=== PATIENT | female | born 2000 | race Caucasian/White ===

== ENCOUNTER 2025-04-01 10:58 | Outpatient (REF) | payer OTHER, SELFPAY ==
--- NOTE | ~2025-04-01 | XR_ITS ---
EXAMINATION: XR KNEE 3 VIEWS BILATERAL HISTORY: bilateral knee pain COMPARISON: There are no prior studies available for comparison. FINDINGS: Six views of the bilateral knees are submitted. Osseous mineralization is normal. There is no fracture or dislocation. The joint spaces are preserved. The soft tissues are unremarkable. There is no joint effusion. XR/XR Knee Ant 3V IMPRESSION: Unremarkable examination of the bilateral knees. Electronically signed by: Anil Jiménez MD 04/01/2025 11:40 AM EDT
--- OUTSIDE RECORDS SUMMARY | 2025-04-02 12:53 | XMS_ITS | Encounter Summary ---
Author Organization [facility] Address [address] [place] [address] Care Team Providers Care Measurement Analyst Name Role Phone Jennie Lim COPPER ETCHER Primary Care Provider Encounter Details Date Type Department Care Team (Late st Contact Info) Description 03/31/2025 - 04/01/2025 3:49 AM EDT Emergency [facility] Emergency [address] [place] [address] Discharge Disposition: ED Dismiss - [...] on filedocumented in this encounter Care Teams Measurement Analyst Relationship Specialty Start Date End Date Jennie Lim COPPER ETCHER [address] [place] [address] 3 [facility] [phone] PCP - General Nurse Practitioner 08/22/24 documented as of this encounter
--- OUTSIDE RECORDS SUMMARY | 2025-04-02 12:53 | XMS_ITS | Clinical Summary ---
Author Organization [facility] Address [address] [place] [address] Phone Care Team Providers Care Research Center Director Name Role Phone Jennie Lim NP Primary Care Provider Allergies No known active allergies Medications cimetidine (TAGAMET) 200 mg tablet Take 1 tablet (200 mg total) by mouth 4 (four) times a day. Active Encounters Date Type Department Care Team Description 03/31/2025 - 04/01/2025 3:49 AM EDT Emergency [facility] Emergency [address] [place] [address] Discharge Disposition: ED Dismiss - [...] complete this topic RSV Immunization Patients Un avelino 20 months Aged Out No longer eligible b ased on patient's age to complete this topic Varicella Vaccines Aged Out No longer eligible based on patient's age to complete this topic Insurance [facility] MEDICAID ADVANTAGE Care Teams Research Center Director Relationship Specialty Start Date End Date Jennie Lim NP [address] [place] [address] [place] [address] PCP - General Nurse Practitioner 08/22/24
== END 2025-04-01 10:59 | disposition home or self-care (01) ==
LOC: HO.HOSX 10:58
PROVIDERS: Visit Provider Orthopaedic Surgery
DX: M25.561 Pain in right knee (principal); M25.562 Pain in left knee; M79.605 Pain in left leg; M54.50 Low back pain, unspecified
CPT/HCPCS: 73562; 99202

== ENCOUNTER 2025-04-01 11:12 | Outpatient (AMB) | payer OTHER, SELFPAY ==
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
--- OUTSIDE RECORDS SUMMARY | 2025-04-01 12:48 | XMS_ITS | Clinical Summary ---
Author Organization [facility] Address [address] [place] [address] Phone Care Team Providers Care Engine Cleaner Name Role Phone Jennie Lim NP Primary Care Provider Allergies No known active allergies Medications cimetidine (TAGAMET) 200 mg tablet Take 1 tablet (200 mg total) by mouth 4 (four) times a day. Active Encounters Date Type Department Care Team Description 03/31/2025 - 04/01/2025 3:49 AM EDT Emergency [facility] Emergency [address] [place] [address] Discharge Disposition: ED Dismiss - Never Arrived from Last 3 Months Surgical History Surgery Date Site/Laterality Comments CARPAL TUNNEL RELEASE Right 2023 HEMORRHOID SURGERY Medical History Medical History Date Comments GERD (gastroesophageal reflux disease) Strep throat Social History Tobacco Use Types Packs/Day Years Used Date Smoking Tobacco: Never Smokeless Tobacco: Never Tobacco Cessation:Counseling Given: Not Answered Alcohol Use Standard Drinks/Week Comments Not Currently 0 (1 standard drink = 0.6 oz pur e alcohol) Interpersonal Safety Answer Date Record ed Physical Abuse Unrecognized value 08/25/2024 Verbal Abuse Unrecognized value 08/25/2024 Comments No Sex and Gender Information Value Date Recorded Sex Assigned at Female 08/22/2024 2:50 PM EST Legal Sex Female 1:02 PM EST Gender Identity Female 08/25/2024 9:22 AM EST Sexual Orientation Straight 08/25/2024 9: 22 AM EST Obstetrics History Last Filed Vital Signs Vital Sign Reading Time Taken Comments Blood Pressure 116/78 08/25/2024 1:03 PM EST Pulse 56 08/25/2024 1:03 PM EST Temperature 36.1 C (97 F) 08/25/2024 1:03 PM EST Respiratory Rate 18 08/25/2024 1:03 PM EST Oxygen Saturation 99% 08/25/2024 1:03 PM EST Inhaled Oxygen Concentration - - Weight 79.8 kg (176 lb) 08/25/2024 9:45 AM EST Height 165.1 cm (5' 5 ) 08/11/2024 11:00 AM EST Body Mass Index 29.29 08/11/2024 11:00 AM EST Plan of Treatment Health Maintenance Due Date Last Done Comments HPV Vaccines (1 - 3-dose series) 2014 DTaP,Tdap,and Td Vaccines (1 - Tdap) 2018 Hepatitis B Vaccines (1 of 3 - 19+ 3-dose series) 2018 Cervical Cancer Screening: P ap Smear 2020 Depression Screening 07/02/2024 HIV Screening 08/08/2024 Hepatitis C Screening 08/08/2024 Social Influencers of Health Screening 08/08/2024 COVID-19 Vaccine (1 - 2023-2 5 season) 2025 Influenza Vaccine (#1) 2025 RSV Immunization Adult Patie nts (1 - 1-dose 75+ series) 2074 HIB Vaccines Aged Out No longer eligi ble based on patient's age to complete this topic Hepatitis A Vaccines Aged Out No long er eligible based on patient's age to complete this topic IPV Vaccines Aged Out No longer eligi ble based on patient's age to complete this topic MMR Vaccines Aged Out No longer eligi ble based on patient's age to complete this topic Meningococcal ACWY Vaccine Aged Out N o longer eligible based on patient's age to complete this topic Meningococcal B Vaccine Aged Out No l onger eligible based on patient's age to complete this topic Pneumococcal Vaccine: Pediat rics (0 to 5 Years) and At-Risk Patients (6 to 49 Years) Aged Out No longer eligible b ased on patient's age to complete this topic RSV Immunization Patients Un avleino 20 months Aged Out No longer eligible b ased on patient's age to complete this topic Varicella Vaccines Aged Out No longer eligible based on patient's age to complete this topic Insurance [facility] MEDICAID ADVANTAGE Care Teams Engine Cleaner Relationship Specialty Start Date End Date Jennie Lim NP [address] [place] [address] [place] [address] PCP - General Nurse Practitioner 08/22/24
--- OUTSIDE RECORDS SUMMARY | 2025-04-01 12:48 | XMS_ITS | Encounter Summary ---
Author Organization [facility] Address [address] [place] [address] Care Team Providers Care Radio Frequency Engineer Name Role Phone Jennie Lim SQUARING SHEAR OPERATOR Primary Care Provider Encounter Details Date Type Department Care Team (Late st Contact Info) Description 03/31/2025 - 04/01/2025 3:49 AM EDT Emergency [facility] Emergency [address] [place] [address] Discharge Disposition: ED Dismiss - Never Arrived Social History Tobacco Use Types Packs/Day Years Used Date Smoking Tobacco: Never Smokeless Tobacco: Never Alcohol Use Standard Drinks/Week Comments Not Currently [...] Orientation Straight 08/25/2024 9: 22 AM EST documented as of this encounter Medications at Time of Discharge cimetidine (TAGAMET) 200 mg tablet Take 1 tablet (200 mg total) by mouth 4 (four) times a day. documented as of this encounter Discharge Disposition Disposition Code Departure Means Destination ED Dismiss - Never Arrived documented in this encounter Plan of Treatment Not on file documented as of this encounter Visit Diagnoses Not on filedocumented in this encounter Care Teams Radio Frequency Engineer Relationship Specialty Start Date End Date Jennie Lim SQUARING SHEAR OPERATOR [address] [place] [address] [address] [facility] [place] [phone] PCP - General Nurse Practitioner 08/22/24 documented as of this encounter
== END 2025-04-01 11:45 | disposition home or self-care (01) ==
PROVIDERS: PCP Nurse Practitioner Family; Visit Provider Orthopaedic Surgery
DX: M25.561 Pain in right knee (principal); M25.562 Pain in left knee; M54.50 Low back pain, unspecified; M79.605 Pain in left leg
CPT/HCPCS: 99203; G2211

== ENCOUNTER → 2025-04-01 11:16 | Outpatient (BNV) | payer OTHER, SELFPAY | PROVIDERS: Visit Provider Radiology Diagnostic Radiology | DX: M25.561 Pain in right knee (principal); M25.562 Pain in left knee | CPT/HCPCS: 73562 ==

== ENCOUNTER 2025-05-21 15:22 | Outpatient (AMB) | payer OTHER, SELFPAY ==
--- NOTE | 2025-05-21 15:29 | MHC.OFFVIS ---
Vital Signs 05/21/25 15:31 Height 5 ft 5 in Weight 180 lb BMI 30.0 Intake Visit Reasons: bilateral knee pain Intake Note: Nita presents today with her son for her follow up visit for her lower back pain and bilateral knee pain. States she feeling better, she has been doing some knee exercise at home and feels like she is ready to return to work. She works at [employer]. She denies any numbness or tingling in either of her lower extremities. She denies any locking or giving way in either of her knees. The patient states that she canceled her low back MRI because her symptoms resolved. Allergies No Known Allergies Allergy (Verified 05/21/25 15:31) Medication List - Last Reconciled 05/22/25 by Joe Faith MD albuterol sulfate 90 mcg/actuation (Ventolin HFA) 2 puffs inhalation QID etonogestrel-ethinyl estradiol 0.12-0.015 mg/24 hr (Haloette) 1 vag ring vaginal Q4W hydroxyzine HCl 50 mg PO BEDTIME PRN ibuprofen 800 mg PO Q8H methylphenidate HCl ER (Concerta) 18 mg PO DAILY PFSH Social History Current occupational status: employed Current occupation: [email or web address] Physical Exam Vital Signs: BMI result Body Mass Index 30.0 Extrem Other: Bilateral knee examination shows no effusions, no crepitus with range of motion, no joint line tenderness, no instability, no discomfort with range of motion Assessment & Plan Assessment & Plan (1) Bilateral knee pain: Code(s): M25.561 - Pain in right knee; M25.562 - Pain in left knee Category: Medical Plan Ms. Walker presents for follow up of her low back pain and bilateral knee pains. At this point the patient is asymptomatic. She can continue full activities as tolerated. She is cleared to return to full duty at work. She will follow up with me on an as-needed basis should any questions or concerns arise. I spent 21 minutes in reviewing the patient's records and imaging studies, seeing the patient and documenting in the medical record. Coding Level of Care Code Est Pt Level 3 (78927) Diagnoses Bilateral knee pain M25.561; M25.562
--- OUTSIDE RECORDS SUMMARY | 2025-05-21 20:35 | XMS_ITS | Data Portability ---
Author Organization [place] [facility] Address [address] [place] [address] Care Team Providers Care Eyeglass Maker Name Role Phone ELBA LEDBETTER Primary Care Provider Assessment Encounter Date Assessment Date Assessment LastModified by Organization Details LastModified Time 06/17/2024 06/17/2024 23-year-old female presents today for tonsil stones, recurrent strep. While she reports that she has been on antibiotics 3-5 times for strep, I only see 3 strep swabs in the past year and only one of them was weakly positive for strep. This does not take into account visits to her PCP. She does have a picture which does show prominent stone. On exam today, tonsils are cryptic without any active stones. Her description of her symptoms is pretty significant. She has already been on salt water gargles and does avoid removing them. They usually come out on their own. Further medical management can include avoiding Listerine and regular use of reflux medication, though I doubt this will be curative for the stones. It would be reasonable to proceed with tonsillectomy. We discussed that this would not be she could still get strep infections but it should be curative for the stones. The patient is a candidate for tonsillectomy. Alternatives including continued observation discussed. Risk of general anesthesia, 2-3% risk of bleeding, the possible risk of damage to teeth and gums, the significant pain involved, voice changes, postoperative trouble swallowing were all discussed. The they will contact our office to schedule at a mutually convenient time. All questions were answered. [email or web address] Not available 06/17/2024 10:05:01 Plan of Treatment Reminders Order Date Submit Date Provider Last Modified By Organization Details Last Modified Time Details Appointments None recorded. Lab None recorded. Referral None recorded. Procedures None recorded. Surgeries tonsillect cristela (SURG) 2023 024 [email or web address] Not available 10:17:43 Imaging None recorded. Medication Orders None recorded. Patient TargetsNo targets recorded. Patient InstructionsNo instructions recorded. Reason for Referral None Reported. Results Created Date Observation Date Name Description Value Unit Range Abnormal Flag Note LastModifiedBy Organization Detail LastModifiedTime 08/25/1908/25/2024 TISSU E EXAM .note See Note Origi nal Order ing Provi avelino: BRIT N BUSEK HARPER [facility] - [address], Sita agarwal, [place] [id number] Not Available [address], [address], 08/26/2024 12:47:13 08/25/19 25 08/25/2024 TISSU E EXAM final diagnosis A. Tonsil , right, tonsil lectom y: - Tonsi l with promi nent folli cular lymph oid hyper plasi a, focal acute infla mmati on in the surfa ce epith elium and scatt ered aggre baez of bacte molly morph ologi romero sugge stive of Actin omyce s spp. B. Tonsi l, left, tonsi llect cristela: - Tonsi l with promi nent folli cular lymph oid hyper plasi a, focal ulcer ation assoc iated with acute infla mmati on and scatt ered aggre baez of bacte molly morph ologi romero sugge stive of Actin omyce s spp. Elect mai agarwal by Jesse Marroquin MD on 2024 at 12:44 PM Not Available [address], [address], 08/26/2024 12:47:13 08/25/19 25 08/25/2024 TISSU E EXAM gross description A. Tonsil , Right, : Label ed tonsi l R . Recei zahida in forma daniel is a focal ly disru pted, soft, hwang-p ink, lobul ar tonsi l measu ring 1.7 x 1.5 x 0.8 cm, with minim al attac hed blood clot. The mucos a is shiny and pink. The base is caute rized . The cut surfa kacy are soft and hwang-p ink, with a crypt ic archi tectu re. The crypt s conta in minim al soft, hwang-y ellow debri s A repre senta tive secti on is submi tted in one casse tte. B. Tonsi l, Left, : Label ed tonsi l L . Recei zahida in forma daniel is a focal ly disru pted, soft, hwang-p ink, lobul ar tonsi l measu ring 1.7 x 1.5 x 1.1 cm, with attac hed blood clot. The mucos a is shiny and pink. The base is caute rized . The cut surfa kacy are soft and hwang-p ink, with a crypt ic archi tectu re. The crypt s conta in soft, hwang-y ellow debri s. A repre senta tive secti on is submi tted in one casse tte. TS Not Available [address], [address], 08/26/2024 12:47:13 08/25/19 25 08/25/2024 TISSU E EXAM disclaimer Unles s other parish speci fied, all tissu e is 10% NB forma daniel fixed and paraf fin embed ded. Not Available [address], [address], 08/26/2024 12:47:13 08/25/19 25 08/25/2024 H&P No observ ation record ed. [address], [address], 08/26/2024 10:25:40 08/25/19 25 08/25/2024 op note No observ ation record ed. [address], [place], [address], 08/26/2024 10:25:41 Result Notes None recorded. Problems Name Problem SNOMED Code Status Onset Date Resolution Date Notes Provider Name and Address Organization Details Recorded Time Chronic tonsillitis 94490655 Active 024 CLEVELAND SMITH MD [address] [facility], [place], [address], [facility] 4 09:59:19 Problem Notes None recorded. Procedures Surgical History Date Name Laterality Status Provider Name and Address Organization Details Recorded Time Removal of tonsils completed CLEVELAND SMITH MD [address] [facility] [address], [place], [address], [facility] 08/25/2024 12:23:34 Imaging Results None recorded. Procedure Notes None recorded. Medical Equipment None Reported. Allergies Allergen ID Allergen Name Allergen Category Reaction Reaction Severity Criticality Documentation Date Start Date Code Code System Note Provider Name and Address Organization Details Recorded Time 004880 coconut extract food,medi cation Not available Not available Not available 06/17/2024 21525 48 RxNorm Jocy mcallister [facility] 4 09:30:25 Medications Name Sig Start Date Stop Date Status Note LastModified by Organization Details LastModified Time amoxicillin 500 mg capsule TAKE 1 CAPSULE BY MOUTH TWICE DAILY FOR 10 DAYS 06/17 completed Not Available Not Available Not Available fexofenadin e 60 mg tablet TAKE 1 TABLET BY MOUTH TWICE DAILY FOR 10 DAYS 06/17 completed Not Available Not Available Not Available oxycodone 5 mg/5 mL oral solution TAKE 5 ML BY MOUTH EVERY 4 HOURS FOR 5 DAYS NEEDED FOR BREAKTHRO UGH PAIN active Not Available Not Available No t Available penicillin V potassium 500 mg tablet 06/17 completed Not Available Not Available Not Available polymyxin B sulfate 10,000 unit-trimet hoprim 1 mg/mL eye drops INSTILL 1 DROP IN BOTH EYES THREE TIMES DAILY FOR 10 DAYS 06/17 completed Not Available Not Available Not Available methylpredn isolone 4 mg tablets in a dose pack FOLLOW PACKAGE DIRECTION S 06/17 completed Not Available Not Available Not Available ondansetron 4 mg disintegrat ing tablet DISSOLVE 1 TABLET ON THE TONGUE EVERY 8 HOURS FOR 3 DAYS NEEDED FOR NAUSEA active Not Available Not Available No t Available amoxicillin 875 mg-potassiu m clavulanate 125 mg tablet TAKE 1 TABLET BY MOUTH EVERY 12 HOURS FOR 10 DAYS 06/17 completed Not Available Not Available Not Available Ventolin HFA 90 mcg/actuati on aerosol inhaler INHALE 2 PUFFS BY MOUTH 4 TIMES DAILY NEEDED FOR WHEEZING 06/17 completed Not Available Not Available Not Available etonogestre l 0.12 mg-ethinyl estradiol 0.015 mg/24 hr vaginal ring active Not Available Not Available Not Available cyclobenzap rine 5 mg tablet TAKE 1 TABLET BY MOUTH THREE TIMES DAILY FOR 14 DAYS 06/17 completed Not Available Not Available Not Available BinaxNOW COVID-19 Ag Self Test kit TEST DIRECTED TODAY active Not Available Not Available No t Available Vitals Date Recorded Body height Body mass index (BMI) Body weight Provider Name and Address Organization Details Last Updated DateTime 06/17/2024 165.1 cm 29.6 kg/m2 62156.44 g Jocy Major [place] [facility] 06/17/2024 09:30:14 Social History None recorded. Functional Status None recorded. Mental Status None recorded. Family History Nothing Reported. Medical History Condition Response Anemia Y Migraines Y Anxiety Y Depression Y Asthma Y Gynecological HistoryNo gynecological history recorded. Obstetrics History GPAL:G 0 P 0 0 0 0 Past Encounters Encounter ID Performer Location Encounter Start Date Encounter Closed Date Diagnosis/Indication Diagnosis SNOMED-CT Code Diagnosis ICD10 Code Diagnosis IMO Codes Diagnosis Note [id number] CLEVELAND SMITH MD [facility] on [address] [place] [address] 06/17/2024 09:29:26 06/17/2024 10:06:54 Chronic tonsillitis 82397178 J35.01 Health Concerns Section Related Observation LastModified by Organization Detai ls LastModified Time None Recorded Concern Status LastModified by Organization Details LastModified Time None Recorded Advance Directives Directive None Recorded Payers Insurance Date Sequence Insurance Name Policy Number Policy Morrow Covered Member ID Morrow Member ID Guarantor Name 09/17/[address] [place] [address] [facility] (MEDICAID HMO) [id number] Nita Walker [id number] Nita Walker Notes Date Note Type Note Provider Name and Address Organization Details Recorded Time 06/17/2024 text/html 23 yo F here for consultation for tonsillectomy. Recently on abx for strep for over a month. Usually on abx 3-5 times a year for throat infections. 05/06 rapid strep negative. Faintly positive 04/15. 05/2023 negative strep. Has had tonsil stones for years. gets choking symptoms. Has tried to remove them, bad gag reflex. Uses salt water rinses. No snoring or apnea. Some seasonal allergies. Does have some heartburn. Does take acid extract operator - cimetidine as needed OTC. No GI eval. No FH of clotting disorder. CLEVELAND SMITH MD [address] [place] [address], [phone], [place] [facility] 06/17/2024 10:05:32 OBGyn Episode No OBEpisode recorded.
--- OUTSIDE RECORDS SUMMARY | 2025-05-21 20:35 | XMS_ITS | Clinical Summary ---
Author Organization [facility] Address [address] [place] [address] Phone Care Team Providers Care Wheel Borer Name Role Phone Jennie Lim NP Primary Care Provider Allergies No known active allergies Medications cimetidine (TAGAMET) 200 mg tablet Take 1 tablet (200 mg total) by mouth 4 (four) times a day. Active Encounters Date Type Department Care Team Description 03/31/2025 - 04/01/2025 3:49 AM EDT Emergency [facility] Emergency [address] [place] [address] Discharge Disposition: ED Dismiss - [...] Health Screening 08/08/2024 COVID-19 Vaccine (1 - 2024-2 6 season) 2025 Influenza Vaccine (#1) 2025 RSV [...] patient's age to complete this topic Insurance [facility] MEDICAID ADVANTAGE Care Teams Wheel Borer Relationship Specialty Start Date End Date Jennie Lim NP [address] [place] [address] [place] [address] PCP - General Nurse Practitioner 08/22/24
== END 2025-05-21 15:41 | disposition home or self-care (01) ==
LOC: HO.HOS 15:23
PROVIDERS: Visit Provider Orthopaedic Surgery
DX: M25.561 Pain in right knee (principal); M25.562 Pain in left knee
CPT/HCPCS: 99213

== ENCOUNTER → 2025-05-21 15:22 | Outpatient (BNVA) | payer OTHER, SELFPAY | PROVIDERS: Visit Provider Orthopaedic Surgery | DX: M25.561 Pain in right knee (principal); M25.562 Pain in left knee; M54.50 Low back pain, unspecified | CPT/HCPCS: 99212 ==